=== PATIENT | female | born 1945 | race Caucasian/White ===

== ENCOUNTER → 2016-11-24 | Outpatient (CLI) | payer MEDICARE, MEDICAID ==
[~2016-11-24] MED LIST: ALBU18HF PO; AMOX-291 PO; ASPI-515 PO; ASPI325T17 PO; BUDE10.2 INH; CARV3.1212 PO; CARV6.2512 PO; CIPR500T3 PO; CRAN200C2 PO; DOXY100T PO; ENAL2.5T PO; ENAL5TAB70 PO; FURO40TA6 PO; GARL1CAP PO; HYDR-3237 PO; LEVO500T8 PO; LEVO750T26 PO; METR500T PO; NICO1PAT13 TD; PANT40TA3 PO; POTA20TA14 PO; PRED20TA PO; SIMV20TA PO; SPIR25TA PO; SULF-169 PO; THIA100T27 PO
== END | disposition home or self-care (01) ==
LOC: CFH 11:30
PROVIDERS: ATTEND Physician Assistant
DX: J44.9 Chronic obstructive pulmonary disease, unspecified (principal); F17.210 Nicotine dependence, cigarettes, uncomplicated
CPT/HCPCS: 71020

== ENCOUNTER 2016-12-11 09:35 | Inpatient (IN) | payer MEDICARE, MEDICAID ==
[~2016-12-11] VITALS: Ht 160 cm; Wt 58.4 kg
[~2016-12-11 09:35] MED LIST changes: +NICO-486 TD; -NICO1PAT13 TD
[2016-12-11] MEDS ORDERED: SODIUM CHLORIDE 0.9% 1,000 ML IV ONE (10:08)
[2016-12-11] MEDS ORDERED: methylPREDNISolone SOD SUCC 125 MG/2 ML ONE (10:17)
[2016-12-11] MEDS ORDERED: ALBUTEROL/IPRATROPIUM 2.5MG/0.5MG, 3 ML ONE (10:23)
[2016-12-11] MEDS ORDERED: SODIUM CHLORIDE FLUSH 10ML SYR IVF ONE (10:30)
[2016-12-11] MEDS ORDERED: ALBUTEROL/IPRATROPIUM 2.5MG/0.5MG, 3 ML NPPB ONE (10:30)
[2016-12-11] MEDS ORDERED: methylPREDNISolone SOD SUCC 125 MG/2 ML IVP ONE (10:30)
[2016-12-11 10:33] LABS: HEMOGLOBIN 14.1 g/dL (11.7-16.4); WHITE BLOOD COUNT 7.2 x10^3/uL (3.4-10)
[2016-12-11 10:47] LABS: BLOOD UREA NITROGEN 14 mg/dL (7-18)
[2016-12-11 10:57] LABS: IS PT STATUS REG ER OR PRE ER? YES
[2016-12-11] MEDS ORDERED: CEFTRIAXONE PMX 1GM/50ML 50 ML ONE (11:26)
[2016-12-11] MEDS ORDERED: ALBUTEROL/IPRATROPIUM 2.5MG/0.5MG, 3 ML IPPB PRN (12:00)
[2016-12-11] MEDS ORDERED: CEFTRIAXONE PMX 1GM/50ML 50 ML IV ONE (12:00)
[2016-12-11] MEDS ORDERED: ACETAMINOPHEN 325 MG TABLET PO PRN (12:00)
[2016-12-11] MEDS ORDERED: GUAIFENESIN/DM 200-20MG, 10ML UDC PO PRN (12:00)
[2016-12-11] MEDS ORDERED: DIPHENHYDRAMINE 25 MG CAPSULE PO PRN (12:00)
[2016-12-11] MEDS ORDERED: ONDANSETRON 2MG/ML, 2ML IVPush PRN (12:00)
[2016-12-11] MEDS ORDERED: ALBUTEROL/IPRATROPIUM 2.5MG/0.5MG, 3 ML HHN SCH (12:00)
[2016-12-11] MEDS ORDERED: DOCUSATE 100 MG CAPSULE PO PRN (12:00)
[2016-12-11] MEDS: ENOXAPARIN 40 MG/0.4 ML SQ SCH (13:00)
[2016-12-11] MEDS: ALBUTEROL/IPRATROPIUM 2.5MG/0.5MG, 3 ML NPPB SCH ×4 (14:00→23:00)
[2016-12-11 14:16] VITALS: BP 171/101
[2016-12-11 14:42] VITALS: BP 157/89
[2016-12-11] MEDS: methylPREDNISolone SOD SUCC 40 MG/ML IVPush SCH ×2 (14:48→21:52)
[2016-12-11] MEDS: NICOTINE 7 MG/24 HR PATCH.TD24 TD SCH (14:48)
[2016-12-11] MEDS: AZITHROMYCIN 500 MG TABLET PO SCH (14:48)
[2016-12-11] MEDS: BUDESONIDE 0.5 MG/2 ML INHA INH SCH (21:00)
[2016-12-11] MEDS: FUROSEMIDE 40 MG TABLET PO SCH (21:51)
[2016-12-11] MEDS: POTASSIUM CHLORIDE 20 MEQ TAB.ER.PRT PO SCH (21:51)
[2016-12-11] MEDS: CARVEDILOL 3.125 MG TABLET PO SCH (21:51)
[2016-12-11] MEDS: SIMVASTATIN 20 MG TABLET PO SCH (21:52)
[2016-12-11] MEDS: ENALAPRIL 5MG TABLET PO SCH (21:52)
[2016-12-11] MEDS: SODIUM CHLORIDE FLUSH 10ML SYR IVF SCH (21:54)
[2016-12-11 21:59] VITALS: BP 144/82
[2016-12-12] MEDS: methylPREDNISolone SOD SUCC 40 MG/ML IVPush SCH ×4 (02:53→22:07)
[2016-12-12 03:14] VITALS: BP 132/64
[2016-12-12] MEDS: ALBUTEROL/IPRATROPIUM 2.5MG/0.5MG, 3 ML NPPB SCH ×6 (03:30→20:45)
[2016-12-12] MEDS ORDERED: FLU VACC QS2017-18 (36MOS+) UP/PF 0.5 ML IM-VACC ONE (05:30)
[2016-12-12] MEDS: ASPIRIN 81 MG TABLET EC PO SCH (06:04)
[2016-12-12] MEDS: BUDESONIDE 0.5 MG/2 ML INHA INH SCH ×2 (06:32→18:28)
[2016-12-12 07:14] VITALS: BP 138/86
[2016-12-12] MEDS: FUROSEMIDE 40 MG TABLET PO SCH ×2 (09:42→22:08)
[2016-12-12] MEDS: SPIRONOLACTONE 25 MG TABLET PO SCH (09:42)
[2016-12-12] MEDS: SODIUM CHLORIDE FLUSH 10ML SYR IVF SCH ×2 (09:42→22:08)
[2016-12-12] MEDS: ENALAPRIL 5MG TABLET PO SCH ×2 (09:42→22:08)
[2016-12-12] MEDS: CARVEDILOL 3.125 MG TABLET PO SCH ×2 (09:42→22:07)
[2016-12-12] MEDS: PANTOPROZOLE 40MG TABLET PO SCH (09:42)
[2016-12-12] MEDS: POTASSIUM CHLORIDE 20 MEQ TAB.ER.PRT PO SCH ×2 (09:42→22:08)
[2016-12-12] MEDS: AZITHROMYCIN 500 MG TABLET PO SCH (09:43)
[2016-12-12] MEDS: CEFTRIAXONE PMX 2GM/50ML 50 ML IV SCH (12:49)
[2016-12-12] MEDS: ENOXAPARIN 40 MG/0.4 ML SQ SCH (13:00)
[2016-12-12 13:23] VITALS: BP 135/78
[2016-12-12] MEDS: NICOTINE 7 MG/24 HR PATCH.TD24 TD SCH (15:52)
[2016-12-12 21:12] VITALS: BP 138/88
[2016-12-12] MEDS: SIMVASTATIN 20 MG TABLET PO SCH (22:08)
[2016-12-13 01:57] VITALS: BP 137/85
[2016-12-13] MEDS: ASPIRIN 81 MG TABLET EC PO SCH (05:04)
[2016-12-13] MEDS: methylPREDNISolone SOD SUCC 40 MG/ML IVPush SCH ×3 (05:04→19:11)
[2016-12-13 05:28] LABS: BLOOD UREA NITROGEN 19 mg/dL (7-18)
[2016-12-13] MEDS: ALBUTEROL/IPRATROPIUM 2.5MG/0.5MG, 3 ML NPPB SCH ×5 (07:10→22:00)
[2016-12-13 08:09] VITALS: BP 150/56
[2016-12-13] MEDS: PANTOPROZOLE 40MG TABLET PO SCH (08:44)
[2016-12-13] MEDS: SODIUM CHLORIDE FLUSH 10ML SYR IVF SCH ×2 (08:44→20:38)
[2016-12-13] MEDS: SPIRONOLACTONE 25 MG TABLET PO SCH (08:44)
[2016-12-13] MEDS: FUROSEMIDE 40 MG TABLET PO SCH ×2 (08:45→20:38)
[2016-12-13] MEDS: POTASSIUM CHLORIDE 20 MEQ TAB.ER.PRT PO SCH ×2 (08:45→20:38)
[2016-12-13] MEDS: ENALAPRIL 5MG TABLET PO SCH ×2 (08:45→20:38)
[2016-12-13] MEDS: AZITHROMYCIN 500 MG TABLET PO SCH (08:45)
[2016-12-13] MEDS: CARVEDILOL 3.125 MG TABLET PO SCH ×2 (08:45→20:38)
[2016-12-13] MEDS: CEFTRIAXONE PMX 2GM/50ML 50 ML IV SCH (12:48)
[2016-12-13] MEDS: ENOXAPARIN 40 MG/0.4 ML SQ SCH (13:00)
[2016-12-13 13:55] VITALS: BP 130/82
[2016-12-13] MEDS: NICOTINE 7 MG/24 HR PATCH.TD24 TD SCH (15:38)
[2016-12-13 20:13] VITALS: BP 145/89
[2016-12-13] MEDS: SIMVASTATIN 20 MG TABLET PO SCH (20:38)
[2016-12-14 01:25] VITALS: BP 157/88
[2016-12-14] MEDS: methylPREDNISolone SOD SUCC 40 MG/ML IVPush SCH ×4 (01:48→18:18)
[2016-12-14] MEDS: ASPIRIN 81 MG TABLET EC PO SCH (06:03)
[2016-12-14 07:12] VITALS: BP 167/90
[2016-12-14] MEDS: ALBUTEROL/IPRATROPIUM 2.5MG/0.5MG, 3 ML NPPB SCH ×2 (08:15→18:41)
[2016-12-14] MEDS: SPIRONOLACTONE 25 MG TABLET PO SCH (08:25)
[2016-12-14] MEDS: POTASSIUM CHLORIDE 20 MEQ TAB.ER.PRT PO SCH ×2 (08:26→21:00)
[2016-12-14] MEDS: ENALAPRIL 5MG TABLET PO SCH ×2 (08:26→23:01)
[2016-12-14] MEDS: SODIUM CHLORIDE FLUSH 10ML SYR IVF SCH ×2 (08:26→21:00)
[2016-12-14] MEDS: AZITHROMYCIN 500 MG TABLET PO SCH (08:26)
[2016-12-14] MEDS: CARVEDILOL 3.125 MG TABLET PO SCH ×2 (08:26→23:01)
[2016-12-14] MEDS: PANTOPROZOLE 40MG TABLET PO SCH (08:27)
[2016-12-14] MEDS: FUROSEMIDE 40 MG TABLET PO SCH ×2 (08:27→21:00)
[2016-12-14] MEDS: CEFTRIAXONE PMX 2GM/50ML 50 ML IV SCH (11:37)
[2016-12-14] MEDS: ENOXAPARIN 40 MG/0.4 ML SQ SCH (13:00)
[2016-12-14] MEDS: NICOTINE 7 MG/24 HR PATCH.TD24 TD SCH (13:07)
[2016-12-14 13:39] VITALS: BP 138/85
[2016-12-14] MEDS ORDERED: ALBUTEROL/IPRATROPIUM 2.5MG/0.5MG, 3 ML ONE (18:35)
[2016-12-14 20:32] VITALS: BP 142/90
[2016-12-14] MEDS: SIMVASTATIN 20 MG TABLET PO SCH (23:00)
[2016-12-15] MEDS: methylPREDNISolone SOD SUCC 40 MG/ML IVPush SCH ×4 (01:00→23:17)
[2016-12-15 01:28] VITALS: BP 131/81
[2016-12-15] MEDS: FUROSEMIDE 40 MG TABLET PO SCH ×2 (06:32→18:39)
[2016-12-15] MEDS: POTASSIUM CHLORIDE 20 MEQ TAB.ER.PRT PO SCH ×2 (06:32→18:39)
[2016-12-15] MEDS: ASPIRIN 81 MG TABLET EC PO SCH (06:32)
[2016-12-15 07:14] VITALS: BP 149/90
[2016-12-15] MEDS ORDERED: FLU VACC QS2017-18 (36MOS+) UP/PF 0.5 ML IM-VACC ONE (07:30)
[2016-12-15] MEDS ORDERED: LIDOCAINE 2% VISCOUS, 100ML MM PRN (08:30)
[2016-12-15] MEDS: ALBUTEROL/IPRATROPIUM 2.5MG/0.5MG, 3 ML NPPB SCH ×2 (09:00→21:00)
[2016-12-15] MEDS: SODIUM CHLORIDE FLUSH 10ML SYR IVF SCH ×2 (09:50→20:41)
[2016-12-15] MEDS: SPIRONOLACTONE 25 MG TABLET PO SCH (09:50)
[2016-12-15] MEDS: CARVEDILOL 3.125 MG TABLET PO SCH ×2 (09:50→20:41)
[2016-12-15] MEDS: AZITHROMYCIN 500 MG TABLET PO SCH (09:50)
[2016-12-15] MEDS: ENALAPRIL 5MG TABLET PO SCH ×2 (09:50→20:41)
[2016-12-15] MEDS: PANTOPROZOLE 40MG TABLET PO SCH (09:50)
[2016-12-15] MEDS: ENOXAPARIN 40 MG/0.4 ML SQ SCH (13:00)
[2016-12-15 13:22] VITALS: BP 136/91
[2016-12-15] MEDS: NICOTINE 7 MG/24 HR PATCH.TD24 TD SCH (16:55)
[2016-12-15 18:47] VITALS: BP 142/97
[2016-12-15] MEDS: SIMVASTATIN 20 MG TABLET PO SCH (20:41)
[2016-12-16 03:08] VITALS: BP 149/87
[2016-12-16] MEDS: methylPREDNISolone SOD SUCC 40 MG/ML IVPush SCH (06:18)
[2016-12-16] MEDS: ASPIRIN 81 MG TABLET EC PO SCH (06:18)
[2016-12-16] MEDS: POTASSIUM CHLORIDE 20 MEQ TAB.ER.PRT PO SCH (06:18)
[2016-12-16] MEDS: FUROSEMIDE 40 MG TABLET PO SCH (06:18)
[2016-12-16 07:20] VITALS: BP 133/77
[2016-12-16] MEDS: PANTOPROZOLE 40MG TABLET PO SCH (07:48)
[2016-12-16] MEDS: ALBUTEROL/IPRATROPIUM 2.5MG/0.5MG, 3 ML NPPB SCH (09:00)
[2016-12-16] MEDS: SPIRONOLACTONE 25 MG TABLET PO SCH (09:31)
[2016-12-16] MEDS: SODIUM CHLORIDE FLUSH 10ML SYR IVF SCH (09:31)
[2016-12-16] MEDS: CARVEDILOL 3.125 MG TABLET PO SCH (09:31)
[2016-12-16] MEDS: ENALAPRIL 5MG TABLET PO SCH (09:32)
[2016-12-16] MEDS: AZITHROMYCIN 500 MG TABLET PO SCH (09:32)
[2016-12-16] MEDS ORDERED: CEFTRIAXONE PMX 1GM/50ML 50 ML IV SCH (10:00)
[2016-12-16] MEDS: ENOXAPARIN 40 MG/0.4 ML SQ SCH (13:00)
[2016-12-16 13:16] VITALS: BP 106/68
[2016-12-16] MEDS: NICOTINE 7 MG/24 HR PATCH.TD24 TD SCH (14:05)
[2016-12-16] MEDS ORDERED: CEFD300C37 PO (16:22)
[2016-12-16] MEDS ORDERED: PRED10TA PO (16:22)
== END 2016-12-16 18:10 | disposition home or self-care (01) | DRG 177 ==
LOC: ED 10:15 → EDIP 11:16 → 3NE 12:21
PROVIDERS: ADMIT Internal Medicine; ATTEND Internal Medicine
DX: J15.6 Pneumonia due to other Gram-negative bacteria (principal); J96.01 Acute respiratory failure with hypoxia; I42.9 Cardiomyopathy, unspecified; I50.32 Chronic diastolic (congestive) heart failure; J44.0 Chronic obstructive pulmonary disease with (acute) lower respiratory infection; J44.1 Chronic obstructive pulmonary disease with (acute) exacerbation; I11.0 Hypertensive heart disease with heart failure; Z99.81 Dependence on supplemental oxygen; E78.5 Hyperlipidemia, unspecified; F17.200 Nicotine dependence, unspecified, uncomplicated; K21.9 Gastro-esophageal reflux disease without esophagitis; Z59.9 Problem related to housing and economic circumstances, unspecified; Z86.73 Personal history of transient ischemic attack (TIA), and cerebral infarction without residual deficits; Z90.49 Acquired absence of other specified parts of digestive tract; Z95.810 Presence of automatic (implantable) cardiac defibrillator
CPT/HCPCS: 36415; 71010; 80048; 82040; 83605; 83735; 83880; 84145; 84484; 85025; 87040; 90686; 93005; 94640; 96361; 96365; 96375; J0696; J7620; J7626; J2920; J2930; J7030; J7512

== ENCOUNTER 2017-01-23 09:59 | Observation (INO) | payer MEDICARE, MEDICAID ==
[~2017-01-23] VITALS: Ht 162.6 cm; Wt 50.4 kg
[~2017-01-23 09:59] MED LIST changes: +CEFD300C37 PO; +PRED10TA PO
[2017-01-23 10:51] LABS: HEMATOCRIT 41.5 % (34.6-47.8); HEMOGLOBIN 13.4 g/dL (11.7-16.4); WHITE BLOOD COUNT 5.1 x10^3/uL (3.4-10)
[2017-01-23 11:04] LABS: BLOOD UREA NITROGEN 33 mg/dL (7-18)
[2017-01-23 11:09] LABS: IS PT STATUS REG ER OR PRE ER? YES
[2017-01-23] MEDS ORDERED: OMNIPAQUE 350 MG/ML, 100ML BOTTLE ONE (12:13)
[2017-01-23] MEDS ORDERED: BISACODYL 10 MG SUPP PR PRN (13:30)
[2017-01-23] MEDS ORDERED: NITROGLYCERIN 0.4 MG BOTTLE (25 TABS) SL PRN (13:30)
[2017-01-23] MEDS ORDERED: ONDANSETRON 2MG/ML, 2ML IVPush PRN (13:30)
[2017-01-23] MEDS ORDERED: ACETAMINOPHEN 325 MG TABLET PO PRN (13:30)
[2017-01-23] MEDS ORDERED: ENALAPRILAT 1.25 MG/ML, 2ML IVPush PRN (13:30)
[2017-01-23] MEDS: ENOXAPARIN 40 MG/0.4 ML SQ SCH (13:30)
[2017-01-23] MEDS ORDERED: HYDROcodone/APAP 5/325 TABLET PO PRN (13:30)
[2017-01-23] MEDS ORDERED: DOCUSATE 100 MG CAPSULE PO PRN (13:30)
[2017-01-23] MEDS ORDERED: POLYETHYLENE GLYCOL 17 GM PACKET PO PRN (13:30)
[2017-01-23] MEDS ORDERED: morphine SULFATE 10 MG/ML, 1ML IVPush PRN (13:30)
[2017-01-23 15:05] VITALS: BP 110/72
[2017-01-23 16:34] LABS: IS PT STATUS REG ER OR PRE ER? NO
[2017-01-23 18:48] VITALS: BP 114/78
[2017-01-23] MEDS: POTASSIUM CHLORIDE 20 MEQ TAB.ER.PRT PO SCH (20:41)
[2017-01-23] MEDS: SODIUM CHLORIDE FLUSH 10ML SYR IVF SCH (20:41)
[2017-01-23] MEDS: CARVEDILOL 3.125 MG TABLET PO SCH (20:47)
[2017-01-23] MEDS: FUROSEMIDE 40 MG TABLET PO SCH (20:48)
[2017-01-23] MEDS ORDERED: SIMVASTATIN 20 MG TABLET PO SCH (21:00)
[2017-01-23] MEDS: ENALAPRIL 5MG TABLET PO SCH (22:32)
[2017-01-23 22:46] LABS: IS PT STATUS REG ER OR PRE ER? NO
[2017-01-24 00:55] VITALS: BP 119/82
[2017-01-24] MEDS ORDERED: ASPIRIN 325 MG TABLET EC PO SCH (06:00)
[2017-01-24] MEDS ORDERED: ASPIRIN 325 MG TABLET PO SCH (06:00)
[2017-01-24 06:56] VITALS: BP 125/66
[2017-01-24] MEDS ORDERED: SPIRONOLACTONE 25 MG TABLET ONE (07:30)
[2017-01-24] MEDS: POTASSIUM CHLORIDE 20 MEQ TAB.ER.PRT PO SCH (07:47)
[2017-01-24] MEDS: FUROSEMIDE 40 MG TABLET PO SCH (07:48)
[2017-01-24] MEDS: CARVEDILOL 3.125 MG TABLET PO SCH (07:48)
[2017-01-24] MEDS: ENALAPRIL 5MG TABLET PO SCH (07:49)
[2017-01-24] MEDS: SODIUM CHLORIDE FLUSH 10ML SYR IVF SCH (07:49)
[2017-01-24] MEDS ORDERED: REGADENOSON 0.4 MG/5 ML SYRINGE ONE (08:05)
[2017-01-24] MEDS ORDERED: SPIRONOLACTONE 25 MG TABLET PO SCH (09:00)
[2017-01-24] MEDS ORDERED: FLUTICASONE/VILANTEROL 200-25MCG/INH INH SCH (09:00)
[2017-01-24] MEDS ORDERED: MAGNESIUM SULFATE PMX 2GM/50ML 50 ML IV ONE (09:30)
[2017-01-24] MEDS: ENOXAPARIN 40 MG/0.4 ML SQ SCH (11:59)
[2017-01-24 13:03] VITALS: BP 103/70
== END 2017-01-24 14:54 | disposition home or self-care (01) ==
LOC: ED 10:47 → INTOOBSV 12:46 → EDIP 12:46 → 5SO 14:09 → DCLOUNGE 01-24 14:50
PROVIDERS: ADMIT Internal Medicine; ATTEND Internal Medicine
DX: R07.89 Other chest pain (principal); I42.9 Cardiomyopathy, unspecified; J44.9 Chronic obstructive pulmonary disease, unspecified; I11.0 Hypertensive heart disease with heart failure; I50.9 Heart failure, unspecified; E78.5 Hyperlipidemia, unspecified; E44.0 Moderate protein-calorie malnutrition; I47.2 Ventricular tachycardia; I25.2 Old myocardial infarction; Z82.49 Family history of ischemic heart disease and other diseases of the circulatory system; Z82.5 Family history of asthma and other chronic lower respiratory diseases; Z86.73 Personal history of transient ischemic attack (TIA), and cerebral infarction without residual deficits; Z87.891 Personal history of nicotine dependence
CPT/HCPCS: 36415; 71010; 71275; 78452; 80048; 80061; 82040; 83735; 83880; 84484; 85025; 85610; 85730; 93005; 93017; 96365; 96366; 99285; A9502; C9898; G0378; J2785; J3475; Q9967

== ENCOUNTER 2017-03-06 14:00 | Inpatient (IN) | payer MEDICARE, MEDICAID ==
[~2017-03-06] VITALS: Ht 162.6 cm; Wt 56.1 kg
[~2017-03-06 14:00] MED LIST changes: +ASPI-496 PO; +CARV25TA12 PO; +ENAL10TA PO
[2017-03-06] MEDS ORDERED: FUROSEMIDE 40 MG/4 ML ONE (14:17)
[2017-03-06] MEDS ORDERED: FUROSEMIDE 40 MG/4 ML IV ONE ×2 (14:30→21:00)
[2017-03-06] MEDS ORDERED: SODIUM CHLORIDE FLUSH 10ML SYR IVF ONE (14:30)
[2017-03-06 14:37] LABS: BASOPHILS # (AUTO) 0.07 x10^3/uL (0-0.1); BASOPHILS % (AUTO) 1 % (0-1); EOSINOPHILS % (AUTO) 3 % (1-7); LYMPHOCYTES # (AUTO) 2.05 x10^3/uL (1-3.4); LYMPHOCYTES % (AUTO) 23 % (22-44); MD NO; MEAN CORPUSCULAR HEMOGLOBIN 26.7 pg (27.0-34.8); MEAN CORPUSCULAR HGB CONC 31.9 g/dL (32.4-35.8); MEAN CORPUSCULAR VOLUME 83.6 fL (80-100); MEAN PLATELET VOLUME 8.3 fL (7.4-10.4); MONOCYTES # (AUTO) 0.89 x10^3/uL (0.2-0.8); MONOCYTES % (AUTO) 10 % (2-9); NEUTROPHILS # (AUTO) 5.58 x10^3/uL (1.8-6.8); NEUTROPHILS % (AUTO) 63 % (42-75); PLATELET COUNT 203 x10^3/uL (130-400); RED BLOOD COUNT 5.08 x10^6/uL (3.82-5.3); RED CELL DISTRIBUTION WIDTH 16.1 % (9.6-15.2)
[2017-03-06 14:44] LABS: INTERNATIONAL NORMALIZED RATIO 1.12 (0.93-1.1); PROTHROMBIN TIME 11.5 Seconds (9.6-11.5)
[2017-03-06 14:49] LABS: ALBUMIN 2.7 g/dL (3.4-5.0); ANION GAP 4 mmol/L (5-15); CALCIUM 7.9 mg/dL (8.5-10.1); CHLORIDE 107 mmol/L (98-107)
[2017-03-06 14:55] LABS: ALANINE AMINOTRANSFERASE 34 U/L (12-78); ALKALINE PHOSPHATASE 102 U/L (45-117); BILIRUBIN,TOTAL 0.8 mg/dL (0.2-1.0); CREATININE 0.63 mg/dL (0.55-1.02); TOTAL PROTEIN 5.3 g/dL (6.4-8.2); TROPONIN I < 0.015 ng/mL (0.000-0.045)
[2017-03-06] MEDS ORDERED: ALBU18HF INH (15:58)
[2017-03-06] MEDS ORDERED: SIMV20TA3 PO (15:58)
[2017-03-06] MEDS ORDERED: PRED20TA PO (15:58)
[2017-03-06] MEDS ORDERED: TIOT18CA INH (15:58)
[2017-03-06] MEDS ORDERED: ONDANSETRON 2MG/ML, 2ML IVPush PRN (17:30)
[2017-03-06] MEDS ORDERED: ALBUTEROL HFA 90 MCG/SPRAY INH PRN (17:30)
[2017-03-06] MEDS ORDERED: ONDANSETRON ODT 4 MG PO PRN (17:30)
[2017-03-06] MEDS ORDERED: GUAIFENESIN/DM 200-20MG, 10ML UDC PO PRN (17:30)
[2017-03-06] MEDS ORDERED: LABETALOL 5MG/ML, 20ML IVPush PRN (17:30)
[2017-03-06] MEDS ORDERED: POLYETHYLENE GLYCOL 17 GM PACKET PO PRN (17:30)
[2017-03-06 18:28] VITALS: BP 124/82
[2017-03-06] MEDS: IPRATROPIUM 0.5 MG/2.5 ML INHA NPPB SCH (18:30)
[2017-03-06] MEDS ORDERED: ALBUTEROL SULFATE 2.5MG/0.5ML NPPB PRN (18:30)
[2017-03-06] MEDS: ENOXAPARIN 40 MG/0.4 ML SQ SCH (18:36)
[2017-03-06] MEDS: SIMVASTATIN 20 MG TABLET PO SCH (20:38)
[2017-03-06] MEDS: ENALAPRIL 10 MG TABLET PO SCH (20:38)
[2017-03-06] MEDS: CARVEDILOL 25 MG TABLET PO SCH (20:39)
[2017-03-06] MEDS ORDERED: FAMOTIDINE 20 MG/2 ML IVPush SCH (21:00)
[2017-03-07 01:19] VITALS: BP 115/73
[2017-03-07] MEDS: IPRATROPIUM 0.5 MG/2.5 ML INHA NPPB SCH (01:50)
[2017-03-07 07:30] LABS: ALBUMIN 2.5 g/dL (3.4-5.0); ANION GAP 3 mmol/L (5-15); CALCIUM 7.9 mg/dL (8.5-10.1); CHLORIDE 108 mmol/L (98-107); CREATININE 0.62 mg/dL (0.55-1.02)
[2017-03-07] MEDS ORDERED: ALBUTEROL SULFATE 2.5 MG/3 ML NPPB PRN (07:30)
[2017-03-07 07:39] LABS: BASOPHILS % (AUTO) 0 % (0-1); EOSINOPHILS # (AUTO) 0.01 x10^3/uL (0-0.4); EOSINOPHILS % (AUTO) 0 % (1-7); LYMPHOCYTES # (AUTO) 0.91 x10^3/uL (1-3.4); LYMPHOCYTES % (AUTO) 14 % (22-44); MD NO; MEAN CORPUSCULAR HEMOGLOBIN 26.8 pg (27.0-34.8); MEAN CORPUSCULAR VOLUME 83.7 fL (80-100); MEAN PLATELET VOLUME 8.4 fL (7.4-10.4); MONOCYTES # (AUTO) 0.17 x10^3/uL (0.2-0.8); MONOCYTES % (AUTO) 3 % (2-9); NEUTROPHILS # (AUTO) 5.38 x10^3/uL (1.8-6.8); NEUTROPHILS % (AUTO) 83 % (42-75); PLATELET COUNT 196 x10^3/uL (130-400); RED BLOOD COUNT 4.99 x10^6/uL (3.82-5.3); RED CELL DISTRIBUTION WIDTH 15.3 % (9.6-15.2)
[2017-03-07 07:48] VITALS: BP 131/80
[2017-03-07] MEDS ORDERED: PIPERONYL BUTOXIDE/PYRETHRINS SHAMPOO TP SCH (08:00)
[2017-03-07] MEDS ORDERED: FUROSEMIDE 40 MG/4 ML IV SCH (09:00)
[2017-03-07] MEDS: ENALAPRIL 10 MG TABLET PO SCH ×2 (09:43→21:00)
[2017-03-07] MEDS: CARVEDILOL 25 MG TABLET PO SCH ×2 (09:43→22:02)
[2017-03-07] MEDS: SENNA/DOCUSATE TABLET PO SCH (09:43)
[2017-03-07] MEDS: ASPIRIN 81 MG TABLET EC PO SCH (09:47)
[2017-03-07 14:11] VITALS: BP 108/68
[2017-03-07] MEDS: ENOXAPARIN 40 MG/0.4 ML SQ SCH (17:48)
[2017-03-07 22:03] VITALS: BP 109/67
[2017-03-07] MEDS: SIMVASTATIN 20 MG TABLET PO SCH (22:03)
[2017-03-08 03:48] VITALS: BP 110/92
[2017-03-08] MEDS: ASPIRIN 81 MG TABLET EC PO SCH (04:04)
[2017-03-08] MEDS: CARVEDILOL 25 MG TABLET PO SCH ×2 (08:44→21:16)
[2017-03-08] MEDS: FUROSEMIDE 40 MG/4 ML IV SCH ×2 (08:44→17:00)
[2017-03-08] MEDS: SENNA/DOCUSATE TABLET PO SCH (08:45)
[2017-03-08] MEDS: ENALAPRIL 10 MG TABLET PO SCH ×2 (08:45→21:16)
[2017-03-08 08:46] VITALS: BP 159/93
[2017-03-08 12:51] VITALS: BP 148/71
[2017-03-08] MEDS: ENOXAPARIN 40 MG/0.4 ML SQ SCH (17:30)
[2017-03-08 20:30] VITALS: BP 128/73
[2017-03-08] MEDS: SIMVASTATIN 20 MG TABLET PO SCH (21:16)
[2017-03-09 02:35] VITALS: BP 159/84
[2017-03-09 06:05] LABS: BASOPHILS # (AUTO) 0.03 x10^3/uL (0-0.1); BASOPHILS % (AUTO) 0 % (0-1); EOSINOPHILS # (AUTO) 0.11 x10^3/uL (0-0.4); EOSINOPHILS % (AUTO) 1 % (1-7); LYMPHOCYTES # (AUTO) 1.82 x10^3/uL (1-3.4); LYMPHOCYTES % (AUTO) 18 % (22-44); MD NO; MEAN CORPUSCULAR HEMOGLOBIN 26.8 pg (27.0-34.8); MEAN CORPUSCULAR HGB CONC 31.8 g/dL (32.4-35.8); MEAN CORPUSCULAR VOLUME 84.4 fL (80-100); MONOCYTES # (AUTO) 0.89 x10^3/uL (0.2-0.8); MONOCYTES % (AUTO) 9 % (2-9); NEUTROPHILS # (AUTO) 7.15 x10^3/uL (1.8-6.8); NEUTROPHILS % (AUTO) 72 % (42-75); PLATELET COUNT 194 x10^3/uL (130-400); RED BLOOD COUNT 4.97 x10^6/uL (3.82-5.3); RED CELL DISTRIBUTION WIDTH 15.7 % (9.6-15.2)
[2017-03-09 06:09] LABS: CHLORIDE 103 mmol/L (98-107)
[2017-03-09 06:18] LABS: ANION GAP 5 mmol/L (5-15); CALCIUM 7.7 mg/dL (8.5-10.1); CREATININE 0.65 mg/dL (0.55-1.02)
[2017-03-09 07:58] VITALS: BP 164/98
[2017-03-09] MEDS: SENNA/DOCUSATE TABLET PO SCH (09:00)
[2017-03-09] MEDS: ENALAPRIL 10 MG TABLET PO SCH ×2 (09:36→20:41)
[2017-03-09] MEDS: FUROSEMIDE 40 MG/4 ML IV SCH (09:36)
[2017-03-09] MEDS: CARVEDILOL 25 MG TABLET PO SCH ×2 (09:36→20:41)
[2017-03-09] MEDS: ASPIRIN 81 MG TABLET EC PO SCH (09:36)
[2017-03-09 12:53] VITALS: BP 134/82
[2017-03-09] MEDS: FUROSEMIDE 20 MG TABLET PO SCH (17:00)
[2017-03-09] MEDS: ENOXAPARIN 40 MG/0.4 ML SQ SCH (17:30)
[2017-03-09 20:36] VITALS: BP 123/74
[2017-03-09] MEDS: SIMVASTATIN 20 MG TABLET PO SCH (20:41)
[2017-03-10 00:57] VITALS: BP_SYST 169; BP_SYST 178; BP_DIAS 101; BP_DIAS 79
[2017-03-10 05:21] LABS: BASOPHILS # (AUTO) 0.02 x10^3/uL (0-0.1); BASOPHILS % (AUTO) 0 % (0-1); EOSINOPHILS # (AUTO) 0.13 x10^3/uL (0-0.4); EOSINOPHILS % (AUTO) 2 % (1-7); LYMPHOCYTES % (AUTO) 21 % (22-44); MD NO; MEAN CORPUSCULAR HEMOGLOBIN 26.3 pg (27.0-34.8); MEAN CORPUSCULAR HGB CONC 31.4 g/dL (32.4-35.8); MEAN CORPUSCULAR VOLUME 83.7 fL (80-100); MEAN PLATELET VOLUME 7.7 fL (7.4-10.4); MONOCYTES # (AUTO) 0.93 x10^3/uL (0.2-0.8); MONOCYTES % (AUTO) 11 % (2-9); NEUTROPHILS # (AUTO) 5.84 x10^3/uL (1.8-6.8); NEUTROPHILS % (AUTO) 67 % (42-75); PLATELET COUNT 203 x10^3/uL (130-400); RED BLOOD COUNT 5.13 x10^6/uL (3.82-5.3); RED CELL DISTRIBUTION WIDTH 15.7 % (9.6-15.2)
[2017-03-10 05:31] LABS: ANION GAP 2 mmol/L (5-15); CALCIUM 7.9 mg/dL (8.5-10.1); CHLORIDE 104 mmol/L (98-107); CREATININE 0.46 mg/dL (0.55-1.02)
[2017-03-10 07:20] LABS: TROPONIN I < 0.015 ng/mL (0.000-0.045)
[2017-03-10] MEDS: FUROSEMIDE 20 MG TABLET PO SCH ×2 (08:02→17:00)
[2017-03-10] MEDS: ENALAPRIL 10 MG TABLET PO SCH ×2 (08:03→20:14)
[2017-03-10] MEDS: ASPIRIN 81 MG TABLET EC PO SCH (08:03)
[2017-03-10] MEDS: CARVEDILOL 25 MG TABLET PO SCH ×2 (08:03→20:14)
[2017-03-10 08:09] VITALS: BP 172/109
[2017-03-10] MEDS: SENNA/DOCUSATE TABLET PO SCH (09:00)
[2017-03-10 15:14] VITALS: BP 122/70
[2017-03-10] MEDS: ENOXAPARIN 40 MG/0.4 ML SQ SCH (17:30)
[2017-03-10 19:37] VITALS: BP 157/92
[2017-03-10] MEDS: SIMVASTATIN 20 MG TABLET PO SCH (20:13)
[2017-03-11 01:58] VITALS: BP 134/80
[2017-03-11 05:42] LABS: BASOPHILS # (AUTO) 0.04 x10^3/uL (0-0.1); BASOPHILS % (AUTO) 0 % (0-1); EOSINOPHILS # (AUTO) 0.12 x10^3/uL (0-0.4); EOSINOPHILS % (AUTO) 1 % (1-7); LYMPHOCYTES # (AUTO) 1.86 x10^3/uL (1-3.4); LYMPHOCYTES % (AUTO) 21 % (22-44); MD NO; MEAN CORPUSCULAR HEMOGLOBIN 26.2 pg (27.0-34.8); MEAN CORPUSCULAR HGB CONC 31.3 g/dL (32.4-35.8); MEAN CORPUSCULAR VOLUME 83.6 fL (80-100); MEAN PLATELET VOLUME 8.2 fL (7.4-10.4); MONOCYTES # (AUTO) 0.91 x10^3/uL (0.2-0.8); MONOCYTES % (AUTO) 10 % (2-9); NEUTROPHILS # (AUTO) 5.85 x10^3/uL (1.8-6.8); NEUTROPHILS % (AUTO) 67 % (42-75); PLATELET COUNT 196 x10^3/uL (130-400); RED BLOOD COUNT 5.24 x10^6/uL (3.82-5.3); RED CELL DISTRIBUTION WIDTH 15.3 % (9.6-15.2)
[2017-03-11 05:55] LABS: ANION GAP 2 mmol/L (5-15); CHLORIDE 102 mmol/L (98-107)
[2017-03-11 05:56] LABS: CREATININE 0.56 mg/dL (0.55-1.02)
[2017-03-11 08:18] VITALS: BP 118/74
[2017-03-11] MEDS: CARVEDILOL 25 MG TABLET PO SCH ×2 (08:52→20:15)
[2017-03-11] MEDS: FUROSEMIDE 20 MG TABLET PO SCH ×2 (08:52→18:29)
[2017-03-11] MEDS: ASPIRIN 81 MG TABLET EC PO SCH (08:53)
[2017-03-11] MEDS: SENNA/DOCUSATE TABLET PO SCH (08:53)
[2017-03-11] MEDS: ENALAPRIL 10 MG TABLET PO SCH ×2 (08:54→20:15)
[2017-03-11 16:00] VITALS: BP 149/94
[2017-03-11] MEDS: ENOXAPARIN 40 MG/0.4 ML SQ SCH (16:22)
[2017-03-11 18:53] VITALS: BP 146/98
[2017-03-11] MEDS: SIMVASTATIN 20 MG TABLET PO SCH (20:16)
[2017-03-12 01:33] VITALS: BP 124/71
[2017-03-12] MEDS: CARVEDILOL 25 MG TABLET PO SCH (08:20)
[2017-03-12] MEDS: ASPIRIN 81 MG TABLET EC PO SCH (08:20)
[2017-03-12] MEDS: SENNA/DOCUSATE TABLET PO SCH (08:21)
[2017-03-12] MEDS: ENALAPRIL 10 MG TABLET PO SCH (08:21)
[2017-03-12] MEDS: FUROSEMIDE 20 MG TABLET PO SCH (08:23)
[2017-03-12 09:17] VITALS: BP 113/72
[2017-03-12] MEDS ORDERED: PRED5TAB PO (11:46)
== END 2017-03-12 15:44 | disposition home or self-care (01) | DRG 291 ==
LOC: ED 14:53 → EDIP 15:15 → 5SO 18:20
PROVIDERS: ADMIT Hospitalist; ATTEND Family Medicine
DX: I11.0 Hypertensive heart disease with heart failure (principal); J96.01 Acute respiratory failure with hypoxia; E43 Unspecified severe protein-calorie malnutrition; I27.20 Pulmonary hypertension, unspecified; J44.1 Chronic obstructive pulmonary disease with (acute) exacerbation; B85.2 Pediculosis, unspecified; E78.5 Hyperlipidemia, unspecified; F17.210 Nicotine dependence, cigarettes, uncomplicated; I50.43 Acute on chronic combined systolic (congestive) and diastolic (congestive) heart failure; I25.10 Atherosclerotic heart disease of native coronary artery without angina pectoris; Z68.21 Body mass index [BMI] 21.0-21.9, adult; Z71.6 Tobacco abuse counseling; Z59.0 Homelessness; Z82.49 Family history of ischemic heart disease and other diseases of the circulatory system; Z82.5 Family history of asthma and other chronic lower respiratory diseases; Z86.73 Personal history of transient ischemic attack (TIA), and cerebral infarction without residual deficits; Z90.49 Acquired absence of other specified parts of digestive tract; Z95.810 Presence of automatic (implantable) cardiac defibrillator; Z79.82 Long term (current) use of aspirin; Z79.899 Other long term (current) drug therapy
CPT/HCPCS: 36415; 36600; 71010; 80048; 80053; 82040; 82803; 83735; 83880; 84100; 84443; 84484; 85025; 85610; 93005; 93306; 93970; 94640; 96374; J1650; J1940; J7644; J7512